=== PATIENT | female | born 1945 | race Caucasian/White ===

== ENCOUNTER 2016-10-12 11:03 | Emergency (ER) | payer MEDICARE ==
--- NOTE | 2016-10-12 12:22 | RAD ---
HISTORY: Facial trauma COMPARISONS: None TECHNIQUE: Multiple contiguous axial CT scans were obtained of the face without intravenous contrast, with coronal and sagittal multiplanar reformations. FINDINGS: BONES: There is no displaced fracture or dislocation. The orbital rim is intact. The zygomatic arch is intact. The pterygoid plates are intact. Degenerative changes are noted of the spine. 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 ORBITS: The globes are round. The optic nerves are symmetric. The extraocular musculature is normal. There is no post septal or intraconal inflammatory change. There is no retrobulbar hematoma. PARANASAL SINUSES: There is mucosal thickening seen with bilateral air cell with osteitis of the surrounding bone and a small osteoma. There is a mucous retention cyst versus polypoid mucosal thickening of the left maxillary sinus BRAIN AND SOFT TISSUE: Unremarkable. OTHER: None. IMPRESSION: NO FACIAL FRACTURE. FINDINGS SUGGESTIVE OF CHRONIC SINUSITIS
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
[2016-10-12] MEDS ORDERED: Ibuprofen TAB* 600 MG PO ONE (13:31)
--- NOTE | 2016-10-12 14:09 | RAD ---
INDICATION: Trauma, right hip pain. COMPARISON: There are no prior studies available for comparison. TECHNIQUE: An AP view of the pelvis and frontal and lateral views of both hips were obtained. FINDINGS: The bones are normal alignment. There is mild deformity of the femoral neck at the femoral head neck junction on the left side. No discrete fracture line is seen. There is mild bilateral osteoarthritic change in the hips. Note is made of osteitis pubis. IMPRESSION: MILD DEFORMITY OF THE LEFT FEMORAL NECK LIKELY CHRONIC ALTHOUGH A FRACTURE CANNOT BE EXCLUDED. IF THE PATIENT HAS SYMPTOMS ON THE LEFT SIDE RECOMMEND CT IMAGING FOR FURTHER EVALUATION.
--- NOTE | 2016-10-12 14:30 | RAD ---
INDICATION: Right rib injury COMPARISON: None TECHNIQUE: Multiple views of the ribs were obtained. FINDINGS: Bones: There are findings suspicious for right-sided seventh and eighth rib fractures with mild displacement evaluation is limited due to osteopenia and technical factors. LUNGS: The lungs are clear. There is no pneumothorax. Pleural spaces: There is no evidence of hemothorax. Other: None IMPRESSION: SUSPECT RIGHT SEVENTH AND EIGHTH RIB FRACTURES. NO PNEUMOTHORAX.
== END 2016-10-12 15:23 | disposition home or self-care (01) ==
LOC: ED 11:03
DX: S20.219A Contusion of unspecified front wall of thorax, initial encounter (principal); T14.8 Other injury of unspecified body region; S00.81XA Abrasion of other part of head, initial encounter; W19.XXXA Unspecified fall, initial encounter; Y93.9 Activity, unspecified; Y92.9 Unspecified place or not applicable
CPT/HCPCS: 70486; 73523; 99283; A9270-GY

== ENCOUNTER 2018-04-21 18:39 | Inpatient (IN) | payer MEDICARE ==
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
[2018-04-21] MEDS ORDERED: Ibuprofen TAB* 600 MG PO ONE (20:58)
[2018-04-21] MEDS ORDERED: Ibuprofen TAB* 600 MG ONE (21:00)
[2018-04-21 23:11] LABS: ABS Basophils 0 10^3/ul (0-0.2); ABS Eosinophils 0.1 10^3/ul (0-0.6); ABS Lymphocytes 1.1 10^3/ul (1.0-4.8); ABS Monocytes 0.6 10^3/ul (0-0.8); ABS Neutrophils 7.1 10^3/ul (1.5-7.7); ABS Nucleated RBC 0 10^3/ul; Eosinophil % 1.1 %; Hematocrit 37 % (35-47); Hemoglobin 12.3 g/dl (12.0-16.0); Lymphocyte % 11.8 %; Mean Corpuscular HGB Conc 34 g/dl (31-36); Mean Corpuscular Hemoglobin 31 pg (27-31); Mean Corpuscular Volume 91 fL (80-97); Mean Platelet Volume 7.9 fL (7.4-10.4); Nucleated Red Blood Cells % 0; Platelet Count 208 10^3/ul (150-450); Red Blood Count 4.04 10^6/ul (4.00-5.40); Red Cell Distribution Width 13 % (10.5-15); White Blood Count 8.9 10^3/ul (3.5-10.8)
[2018-04-21 23:29] LABS: Albumin 3.9 g/dL (3.2-5.2); Albumin/Globulin Ratio 1.6 (1-3); BUN/Creatinine Ratio 27.9 (8-20); Calcium 9.3 mg/dL (8.6-10.3); EGFR Non-African American 95.9 (>60); Globulin 2.4 g/dL (2-4); Potassium 3.9 mmol/L (3.5-5.0); Total Bilirubin 0.3 mg/dL (0.2-1.0); Total Protein 6.3 g/dL (6.4-8.9)
[2018-04-21 23:59] LABS: TSH (Thyroid Stimulating Horm) 3.23 mcIU/mL (0.34-5.60)
[2018-04-22 00:32] LABS: Urine Appearance Clear; Urine Bilirubin Negative (Negative); Urine Blood Negative (Negative); Urine Color Yellow; Urine Glucose Negative (Negative); Urine Ketones Negative (Negative); Urine Nitrite Negative (Negative); Urine Protein Negative (Negative); Urine Specific Gravity 1.012 (1.010-1.030); Urine Urobilinogen Negative (Negative)
[2018-04-22] MEDS ORDERED: Acetaminophen TAB* 325 MG PO PRN (01:41)
[2018-04-22] MEDS ORDERED: NS 0.9% 1000 ML** 1,000 ML IV SCH (01:45)
[2018-04-22] MEDS ORDERED: LORazepam TAB(*) 0.5 MG PO PRN (01:46)
[2018-04-22] MEDS: Heparin VIAL(*) 5000 UNITS/ML VIAL (FIVE THOUSAND) SUBCUT SCH ×3 (07:15→21:41)
[2018-04-22] MEDS: Sertraline* 100 MG TAB PO SCH (09:11)
[2018-04-22] MEDS: BuPROPion XL* 150 MG TAB.XL PO SCH (09:11)
--- NOTE | 2018-04-22 09:28 | HP ---
HISTORY AND PHYSICAL: DATE OF ADMISSION: 03/2618 CHIEF COMPLAINT: Left hip fracture, status post mechanical fall. PRIMARY CARE PHYSICIAN: Jake Bal MD. VEGETABLE HANDLER: Cecilio Gallego, who is her friend and neighbor. CODE STATUS: DNR. SOURCE OF INFORMATION: HPI is obtained from patient and review of medical chart. Patient is an excellent historian. HISTORY OF PRESENT ILLNESS: This is a 73-year-old female with past medical history of depression and anxiety who presented after she slipped and fell while picking up her dog on the ice. The patient was picking up her dog from dog daycare and putting him in the car. She slipped and fell directly on her left hip. She was able to drive home, but when she got home she noticed that her left leg was really hurting, so she called the ambulance. She usually walks unassisted. She lives at [facility] and is wholly independent at baseline. She was in her usual state of health prior to this event. In the emergency room, her vital signs were stable. Her labs are normal. Her EKG shows normal sinus rhythm with left ventricular hypertrophy. Left hip radiograph showed no acute fracture, although a pelvis CT shows a mild comminuted fracture. Ortho was consulted who requested to admit patient for MRI and further evaluation and treatment and who requested that hospitalist interviews patient overnight covering for ortho service. PAST MEDICAL HISTORY: Mild depression and anxiety. PAST SURGICAL HISTORY: History of tonsillectomy. MEDICATIONS: 1. Bupropion 300 mg p.o. daily. 2. Sertraline 100 mg p.o. daily. ALLERGIES: She is allergic to peppers. FAMILY HISTORY: Her mother of Parkinson complications. Her father of coronary artery disease and diabetes. 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 She is a nonsmoker and social drinker. Never illicits. Recently relocated to the [facility] from the [facility] where she lived prior to this. REVIEW OF SYSTEMS: Constitutional: Negative for fevers, chills, or malaise. HEENT: Negative for vision, headaches, dysphagia. Cardiovascular: Negative for chest pain, palpitations, orthopnea. Respiratory: Negative for shortness of breath, cough, or pleuritic chest pain. GI: Negative for nausea, vomiting, diarrhea, or abdominal pain. : Negative for dysuria or hematuria. Musculoskeletal: Positive for left hip pain; otherwise, no myalgias, arthralgias, or weakness. Skin: Negative for rashes or lesions, although does endorse left- sided hip hematoma. Neurologic: Denies focal weakness or numbness. Psychiatric: Denies confusion, depression, or anxiety. PHYSICAL EXAMINATION GENERAL: This is a very pleasant woman in no acute distress, lying in bed. VITAL SIGNS: Patient's vital signs are blood pressure 124/70, pulse of sinus 60 , respiratory rate 12, satting 98% on room air, temp is 98.9. HEENT: She is normocephalic and atraumatic. Pupils are equal and reactive. Sclerae are anicteric. Oropharynx is clear. Dentition is good. NECK: Supple with no supraclavicular or cervical lymphadenopathy. RESPIRATORY: Her lungs are clear to auscultation bilaterally. CARDIAC: She has regular rate and rhythm with no murmurs, rubs, or gallops. ABDOMEN: Her belly is soft, nontender, and nondistended with normoactive bowel sounds in all 4 quadrants. MUSCULOSKELETAL: She can move all 4 extremities, although has reduced range of motion in the left hip secondary to pain. She has 2+ pulses bilaterally. She has no decreased sensation. NEUROLOGIC: Cranial nerves II through XII are intact. Patient is A and O x3. No focal sensation deficits. DIAGNOSTIC STUDIES/LAB DATA: Data: CBC with white blood count of 8.9, hematocrit 37, hemoglobin 12.3, platelets 208. BMP, sodium of 138, potassium 3.9, chloride 109, carbon dioxide 26, BUN 17, creatinine 0.61, and glucose 120. LFTs, AST 18, ALT 21, alkaline phosphatase 80. UA was done, which is totally normal. Imaging: Hip-pelvis radiograph was done, which showed no gross fracture. Pelvis CT was done, which showed mildly comminuted fracture of greater trochanter of the left femur with no dislocation. Asymmetrical lucency in the left sacral ala may represent a vascular groove; however, nondisplaced insufficiency fracture cannot be completely excluded. There is mild soft tissue swelling surrounding the fracture. EKG was done, which showed normal sinus rhythm with left ventricular hypertrophy. EKG and images were reviewed by myself. ASSESSMENT AND PLAN: This is a 73-year-old female with past medical history of mild depression and anxiety who presented after a mechanical fall and found to have left hip fracture. 1. Left hip fracture. We will admit to ortho service with medicine consulting , nonweightbearing. I have ordered a left hip MRI at the instructions of on- call orthopedic surgeon. Ortho consult tomorrow. 2. Depression and anxiety. Continue home sertraline and bupropion. Patient has asked for p.r.n. Ativan for sleep, which I have ordered. 3. FEN. We will keep the patient n.p.o. in the event her injury needs surgical repair. 4. DVT prophylaxis. We will place patient on subcu heparin, though we will defer to orthopedic service if other anticoagulation is warranted. 5. Disposition. Patient is stable to the floor. Code status is DNR. Ambulation status, she is on bedrest. Plan of care was discussed with the patient, who is in agreement with plan and has no further questions. TIME SPENT: Forty minutes were spent in the execution of this admission and H and P, with over half of that spent directly at the bedside providing direct patient care. [id number]/[facility] #: [id number] GHIS[place]
[2018-04-22] MEDS: HYDROcodone/ACETAMIN 5-325 MG* 1 TAB PO PRN ×3 (10:04→21:41)
[2018-04-22 11:53] LABS: Hepatitis C Antibody Nonreactive (Nonreactive)
--- NOTE | 2018-04-22 11:56 | CONS ---
DATE OF CONSULT: 04/22/2018. DATE OF ADMISSION: 04/22/2018. CHIEF COMPLAINT: Left greater trochanteric fracture, status post mechanical fall. PRIMARY CARE PHYSICIAN: Dr. Jake Bal. HISTORY OF PRESENT ILLNESS: The patient is a 73-year-old female with a past medical history significant for depression and anxiety who presented to the emergency room after slipping on ice while picking up her dog. Fall consisted of a slip on the ice and falling directly onto the left hip without other reported injuries. She was able to get up and drive home, though due to continued severe sharp pain of the left hip, she called an ambulance. Fall was not associated with chest pain, irregular beats, shortness of breath, dizziness , nausea, change in vision. She did not hit her head or lose consciousness with the fall. The patient is a community ambulator who walks without assistance. At baseline, she lives in the independent section of [facility]. Today her left hip is painful with movement, but she is quite comfortable while lying in bed. She has no associated numbness or tingling. She has not attempted to ambulate since she has been hospitalized. based on xray and CT data, she was diagnosed with a left greater trochanteric fracture with possible extension into the intertrochanteric region for which an MRI of the hip has been ordered. PAST MEDICAL HISTORY: Significant for mild depression and anxiety. PAST SURGICAL HISTORY: History of tonsillectomy. MEDICATIONS: 1. Bupropion 30 mg p.o. daily. 2. Sertraline 100 mg p.o. daily. ALLERGIES: PEPPERS. FAMILY HISTORY: Mother from Parkinson's. Father of coronary artery disease and diabetes. SOCIAL HISTORY: The patient lives independently at [facility]. She is a community ambulator. She does not smoke. She drinks socially. REVIEW OF SYSTEMS: General: No fevers, chills, or recent illness. HEENT: Negative for headache, head trauma, acute change in vision. Cardio: No irregular beats. No chest pain. Respiratory: No shortness of breath. No cough. Abdomen: No abdominal pain, nausea, vomiting or diarrhea. : No dysuria. Musculoskeletal: Positive for left hip pain. No pain of her right lower extremity or of either upper extremity. Neuro: Sensation intact throughout all extremities without any numbness or paresthesia. Hematology: No reported history of blood clot. Skin: No reported rash or lesions. PHYSICAL EXAM: General: The patient is well-appearing. She is alert and oriented to person, place, and time. Vital Signs: Temperature 97.9, pulse rate 71, respiratory rate 18, oxygen saturation 95, blood pressure 128/55. HEENT: Normocephalic, atraumatic. Extraocular movements intact. Cardio: S1, S2, regular rate and rhythm. Respiratory: Clear to auscultation bilaterally without wheeze, rales, or rhonchi. Abdomen: Bowel sounds normoactive. Nontender to palpation. No guarding, no rigidity. Musculoskeletal: Bilateral upper extremities and right lower extremity skin envelop is intact. No obvious bony deformity. Nontender to palpation. Upper extremities with active flexion and extension of digits. Wrist, elbow, and shoulders with active forward flexion and abduction all without pain. Bilateral lower extremities: Skin envelop intact. No obvious bony deformity. Right lower extremity is nontender to palpation. Left lower extremity is tender to palpation over the left greater trochanter. Thighs are soft. She has active nonpainful flexion and/or extension of digits, ankle, knee and hip bilaterally. Negative for pain with log roll bilaterally. Neuro: Sensation intact to light touch throughout bilateral upper and lower extremities. Vascular: DP pulse 2+ bilaterally. Psych: Appropriate affect. Skin: No rash or lesions. DIAGNOSTIC STUDIES/LAB DATA: 1. Hip and pelvis x-ray: Impression per radiology: Nondisplaced left greater trochanteric fracture. 2. Pelvis CT scan: Mildly comminuted fracture of the greater trochanter of the left femur without dislocation of the hip. ASSESSMENT: Left greater trochanter femur fracture. PLAN: MRI of the left hip to rule out extension of the greater trochanteric fracture into the intratrochanteric region. If MRI reveals intertrochanteric fracture, she will require an ORIF of this hip with IM nail. If fracture is limited to the greater trochanter alone, she will be weightbearing as tolerated with the limitation of no abduction and this would be a nonoperative treatment plan. KAYDEN DOMINGO [id number]/[facility] #: [id number] [facility] HOSPITALKathleen
--- NOTE | 2018-04-22 20:38 | PN ---
Subjective Date of Service: 04/22/18 Interval History: Pt is feeling ok. She states her pain is currently 1-2/10, but that she has required pain medication earlier in the day. She states that she has been sleeping poorly, due to interrupted sleep, anxiety, restlessness, and occasional pain. She is anxious about the path of her currently injury, such as how long she will be unable to walk, etc. Currently, she states that she is still able to move the L extremity, but that certain movements cause her pain. She is states she feels restless, as she is an active person, and laying in bed is difficult for her. She denies CP, cough, fever, SOB, abd pain. She states she has not have a BM in a few days, but that she has also been unable to eat as well as she usually does. She denies calf pain. She reports pain in the L hip. Objective Active Medications: Acetaminophen (Tylenol Tab*) 650 mg PO Q6H PRN PRN Reason: FEVER/PAIN Hydrocodone Bitart/Acetaminophen ([place] 5-325 Tab*) 1 tab PO Q6H PRN PRN Reason: PAIN Last Admin: 04/22/18 15:37 Dose: 1 tab Bupropion HCl (Wellbutrin Xl *) 150 mg PO DAILY [facility] Last Admin: 04/22/18 09:11 Dose: 150 mg Heparin Sodium (Porcine) (Heparin Vial(*)) 5,000 units SUBCUT Q8HR [facility] Stop: 04/22/18 23:59 Last Admin: 04/22/18 13:55 Dose: 5,000 units Lorazepam (Ativan Tab(*)) 0.5 mg PO Q6H PRN PRN Reason: INSOMNIA Sertraline HCl (Zoloft*) 100 mg PO DAILY [facility] Last Admin: 04/22/18 09:11 Dose: 100 mg Vital Signs: Temp Pulse Resp BP Pulse Ox 98.2 F 75 16 120/59 98 04/22/18 11:40 04/22/18 11:40 04/22/18 15:37 04/22/18 11:40 04/22/18 11:40 Oxygen Devices in Use Now: None Appearance: Pt is sitting up in bed. She is restless and fidgeting, but appears well and in no acute distress. Eyes: No Scleral Icterus, PERRLA Ears/Nose/Mouth/Throat: NL Teeth, Lips, Gums, Mucous Membranes Moist Neck: NL Appearance and Movements; NL JVP, Trachea Midline Respiratory: Symmetrical Chest Expansion and Respiratory Effort, Clear to Auscultation Cardiovascular: NL Sounds; No Murmurs; No JVD, RRR, No Edema Abdominal: NL Sounds; No Tenderness; No Distention, No Hepatosplenomegaly Extremities: No Edema, No Clubbing, Cyanosis, - - Pt able to move all extremities. L leg nontender to palpation. Radial and pedal pulses palpable. Skin: No Rash or Ulcers Neurological: Alert and Oriented x 3 Result Diagrams: 04/21/18 23:01 04/21/18 23:01 Microbiology and Other Data: Microbiology 04/22/18 04:20 Nasal Screen MRSA (PCR) - Final Nasal Mrsa Detected Assess/Plan/Problems-Billing Assessment: Pt is a 73yof with PMHx of depression, anxiety, who presents to ER with L hip fracture after fall; likely ORIF 04/23. - Patient Problems (1) Closed fracture of greater trochanter of left femur Comment: -Likely ORIF in morning; management per ortho team (2) Depression with anxiety Comment: -Stable; pt does report increased anxiety -Continue Bupropion, Sertraline, Lorazepam (3) DVT prophylaxis Comment: -Heparin
[2018-04-23] MEDS: HYDROcodone/ACETAMIN 5-325 MG* 1 TAB PO PRN ×3 (04:00→18:18)
[2018-04-23] MEDS: Sertraline* 100 MG TAB PO SCH (08:43)
[2018-04-23 09:17] LABS: ABS Basophils 0 10^3/ul (0-0.2); ABS Eosinophils 0.1 10^3/ul (0-0.6); ABS Lymphocytes 0.9 10^3/ul (1.0-4.8); ABS Monocytes 0.5 10^3/ul (0-0.8); ABS Nucleated RBC 0 10^3/ul; Eosinophil % 2.1 %; Hematocrit 36 % (35-47); Hemoglobin 12.2 g/dl (12.0-16.0); Lymphocyte % 16.3 %; Mean Corpuscular HGB Conc 34 g/dl (31-36); Mean Corpuscular Hemoglobin 31 pg (27-31); Mean Corpuscular Volume 91 fL (80-97); Mean Platelet Volume 7.4 fL (7.4-10.4); Nucleated Red Blood Cells % 0; Platelet Count 178 10^3/ul (150-450); Red Blood Count 3.96 10^6/ul (4.00-5.40); Red Cell Distribution Width 13 % (10.5-15); White Blood Count 5.5 10^3/ul (3.5-10.8)
[2018-04-23 09:38] LABS: BUN/Creatinine Ratio 21.2 (8-20); Calcium 8.8 mg/dL (8.6-10.3); EGFR African American 139.5 (>60); EGFR Non-African American 115.3 (>60); Potassium 3.8 mmol/L (3.5-5.0)
[2018-04-23] MEDS: BuPROPion XL* 150 MG TAB.XL PO SCH (09:57)
--- NOTE | 2018-04-23 11:34 | PN ---
Subjective Date of Service: 04/23/18 Interval History: Patient seen and examined. No acute overnight events. Discussion with orthopedics today that MRI revealed left intertroch fx that will require fixation. Patient amenable to procedure. Shes denies SOB, no chest pain, no fevers or chills. She has mild "aches" in her left shoulder which she attributes to not taking her scheduled SSRI. Objective Active Medications: Acetaminophen (Tylenol Tab*) 650 mg PO Q6H PRN PRN Reason: FEVER/PAIN Hydrocodone Bitart/Acetaminophen ([place] 5-325 Tab*) 1 tab PO Q6H PRN PRN Reason: PAIN Last Admin: 04/23/18 08:43 Dose: 1 tab Bupropion HCl (Wellbutrin Xl *) 150 mg PO DAILY [facility] Last Admin: 04/23/18 09:57 Dose: 150 mg Lorazepam (Ativan Tab(*)) 0.5 mg PO Q6H PRN PRN Reason: INSOMNIA Sertraline HCl (Zoloft*) 100 mg PO DAILY [facility] Last Admin: 04/23/18 08:43 Dose: 100 mg Vital Signs - 8 hr 04/23/18 04/23/18 04/23/18 04:00 04:06 06:40 Temperature 98.5 F Pulse Rate 68 Respiratory 18 18 16 Rate Blood Pressure 135/67 (mmHg) O2 Sat by Pulse 97 Oximetry 04/23/18 04/23/18 04/23/18 08:00 08:43 10:54 Temperature 98.6 F Pulse Rate 70 Respiratory 18 18 18 Rate Blood Pressure 150/60 (mmHg) O2 Sat by Pulse 94 Oximetry Oxygen Devices in Use Now: None Appearance: alert, NAD Eyes: No Scleral Icterus, PERRLA Ears/Nose/Mouth/Throat: NL Teeth, Lips, Gums, Mucous Membranes Moist Neck: NL Appearance and Movements; NL JVP, Trachea Midline Respiratory: Symmetrical Chest Expansion and Respiratory Effort, Clear to Auscultation Cardiovascular: NL Sounds; No Murmurs; No JVD, RRR, No Edema Abdominal: NL Sounds; No Tenderness; No Distention Extremities: No Edema, No Clubbing, Cyanosis, - - tenderness over left hip Skin: No Rash or Ulcers Neurological: Alert and Oriented x 3, NL Sensation Nutrition: - - NPO Result Diagrams: 04/23/18 09:06 04/23/18 09:06 Microbiology and Other Data: Microbiology 04/22/18 04:20 Nasal Screen MRSA (PCR) - Final Nasal Mrsa Detected Assess/Plan/Problems-Billing Assessment: This is a 73yof with PMHx of depression, anxiety, who presents to ER with L hip fracture after fall, plan for ORIF today. - Patient Problems (1) Closed fracture of greater trochanter of left femur Code(s): S72.112A - DISP FX OF GREATER TROCHANTER OF LEFT FEMUR, INIT SNOMED Code(s): 343570563 Comment: - Orthopedics following - MRI with extension into the intertrochanteric region - Plan for gamma nail today at 1330 - Labs WNL, EKG with no acute changes; RCRI CV Risk assessment is Class I Risk or 3.9% risk of major cardiac event, patient is currently medically optimized to procede with ORIF today (2) Depression with anxiety Code(s): F41.8 - OTHER SPECIFIED ANXIETY DISORDERS SNOMED Code(s): 63593383 Comment: - Continue Bupropion, Sertraline, Lorazepam post-operatively (3) DVT prophylaxis Code(s): TKV0083 - SNOMED Code(s): 515759899 Comment: - Restart lovenox tomorrow for 30 days Status and Disposition: Inpatient, dispo as per orthopedics.
--- NOTE | 2018-04-23 12:22 | PN ---
Progress Note - Progress Note Date of Service: 04/23/18 SOAP: Subjective: []Pt seen at bedside. She feels well with minimal left hip pain. Denies CP, SOB , dizziness, nausea. Optimized per medicine. Objective: []General: Well appearing, NAD LLE: Skin envelope intact, mildly tender over greater troch, thigh is soft, DF/ PF intact, DP2+, sensation intact to light touch distally Calves supple and nontender without erythema, edema or palpable cords Assessment: []Left IT fracture Plan: []NWB LLE NPO, hold chemical DVT prophylaxis OR today today ORIF left IT fracture, Dr Thomas. Vital Signs Temp 97.4 F 04/23/18 11:43 Pulse 71 04/23/18 11:43 Resp 15 04/23/18 11:43 BP 145/60 04/23/18 11:43 Pulse Ox 93 04/23/18 11:43 Intake & Output 04/22/18 04/23/18 04/23/18 18:59 06:59 18:59 Intake Total 981 360 Output Total 1050 550 300 Balance -69 -190 -300 Weight 146 lb Intake: IV Fluids 981 NS (0.9%) 981 Oral 360 Output: Urine 1050 550 300 Laboratory Last Values WBC 5.5 10^3/ul (3.5-10.8) 04/23/18 09:06 RBC 3.96 10^6/ul (4.00-5.40) L 04/23/18 09:06 Hgb 12.2 g/dl (12.0-16.0) 04/23/18 09:06 Hct 36 % (35-47) 04/23/18 09:06 MCV 91 fL (80-97) 04/23/18 09:06 MCH 31 pg (27-31) 04/23/18 09:06 MCHC 34 g/dl (31-36) 04/23/18 09:06 RDW 13 % (10.5-15) 04/23/18 09:06 Plt Count 178 10^3/ul (150-450) 04/23/18 09:06 MPV 7.4 fL (7.4-10.4) 04/23/18 09:06 Neut % (Auto) 72.1 % 04/23/18 09:06 Lymph % (Auto) 16.3 % 04/23/18 09:06 [place] % (Auto) 8.8 % 04/23/18 09:06 Eos % (Auto) 2.1 % 04/23/18 09:06 Baso % (Auto) 0.7 % 04/23/18 09:06 Absolute Neuts (auto) 4.0 10^3/ul (1.5-7.7) 04/23/18 09:06 Absolute Lymphs (auto) 0.9 10^3/ul (1.0-4.8) L 04/23/18 09:06 Absolute Monos (auto) 0.5 10^3/ul (0-0.8) 04/23/18 09:06 Absolute Eos (auto) 0.1 10^3/ul (0-0.6) 04/23/18 09:06 Absolute Basos (auto) 0 10^3/ul (0-0.2) 04/23/18 09:06 Absolute Nucleated RBC 0 10^3/ul 04/23/18 09:06 Nucleated RBC % 0 04/23/18 09:06 INR (Anticoag Therapy) 1.00 (0.77-1.02) 04/23/18 09:06 Sodium 141 mmol/L (135-145) 04/23/18 09:06 Potassium 3.8 mmol/L (3.5-5.0) 04/23/18 09:06 Chloride 107 mmol/L (101-111) 04/23/18 09:06 Carbon Dioxide 29 mmol/L (22-32) 04/23/18 09:06 Anion Gap 5 mmol/L (2-11) 04/23/18 09:06 BUN 11 mg/dL (6-24) 04/23/18 09:06 Creatinine 0.52 mg/dL (0.51-0.95) 04/23/18 09:06 Est GFR ( Amer) 139.5 (>60) 04/23/18 09:06 Est GFR (Non-Af Amer) 115.3 (>60) 04/23/18 09:06 BUN/Creatinine Ratio 21.2 (8-20) H 04/23/18 09:06 Glucose 103 mg/dL (70-100) H 04/23/18 09:06 Calcium 8.8 mg/dL (8.6-10.3) 04/23/18 09:06 Total Bilirubin 0.30 mg/dL (0.2-1.0) 04/21/18 23:01 AST 18 U/L (13-39) 04/21/18 23:01 ALT 21 U/L (7-52) 04/21/18 23:01 Alkaline Phosphatase 80 U/L (34-104) 04/21/18 23:01 Total Protein 6.3 g/dL (6.4-8.9) L 04/21/18 23:01 Albumin 3.9 g/dL (3.2-5.2) 04/21/18 23:01 Globulin 2.4 g/dL (2-4) 04/21/18 23:01 Albumin/Globulin Ratio 1.6 (1-3) 04/21/18 23:01 TSH 3.23 mcIU/mL (0.34-5.60) 04/21/18 23:01 Urine Color Yellow 04/22/18 00:15 Urine Appearance Clear 04/22/18 00:15 Urine pH 5.0 (5-9) 04/22/18 00:15 Ur Specific [place] 1.012 (1.010-1.030) 04/22/18 00:15 Urine Protein Negative (Negative) 04/22/18 00:15 Urine Ketones Negative (Negative) 04/22/18 00:15 Urine Blood Negative (Negative) 04/22/18 00:15 Urine Nitrate Negative (Negative) 04/22/18 00:15 Urine Bilirubin Negative (Negative) 04/22/18 00:15 Urine Urobilinogen Negative (Negative) 04/22/18 00:15 Ur Leukocyte Esterase Negative (Negative) 04/22/18 00:15 Urine Glucose Negative (Negative) 04/22/18 00:15 Hepatitis C Antibody Nonreactive (Nonreactive) 04/21/18 23:00 Hepatitis C Ab Index < 0.0 Index 04/21/18 23:00 Blood Type O Positive 04/23/18 09:06 Antibody Screen Negative 04/23/18 09:06
[2018-04-23] MEDS ORDERED: fentaNYL* 50 MCG/ML 5 ML VIAL (250 MCG VIAL) ONE (13:51)
[2018-04-23] MEDS ORDERED: Lidocaine 2% PF * 5 ML VIAL ONE ×2 (13:53→16:45)
[2018-04-23] MEDS ORDERED: Propofol* 10 MG/ML 20 ML BTL ONE (13:53)
[2018-04-23] MEDS ORDERED: ceFAZolin 2 GM PREMIX in ORs 2 GM/50 ML BAG IVPB ONE (15:10)
--- NOTE | 2018-04-23 15:18 | PN ---
Progress Note - Progress Note Date of Service: 04/23/18 Note: I have seen and examined Isabela and agree with the consultation note dictated by KAYDEN Edwards. She has a nondisplaced left hip intertrochanteric hip fracture confirmed on MRI. We will plan for surgical stabilization today with a left hip short gamma nail.
[2018-04-23] MEDS ORDERED: Bupivacaine 0.5% W/EPI SDV* 30 ML VIAL ONE (15:21)
[2018-04-23] MEDS ORDERED: Rocuronium* 10 MG/ML VIAL ONE ×2 (15:25→16:25)
[2018-04-23] MEDS ORDERED: Phenylephrine IV* 40 MCG/ML 10 ML SYRINGE ONE (16:16)
[2018-04-23] MEDS ORDERED: Cisatracurium* 2 MG/ML MDV 5 ML ONE (16:23)
[2018-04-23] MEDS ORDERED: Dexamethasone IV* 4 MG/ML 1 ML (4 MG) ONE (16:27)
[2018-04-23] MEDS ORDERED: Ibuprofen TAB* 600 MG PO PRN (16:37)
[2018-04-23] MEDS ORDERED: DiMENhydriNATE IV* 50 MG/ML VIAL IV PUSH PRN (16:37)
[2018-04-23] MEDS ORDERED: HYDROmorphone INJ1* 1 MG/ML SYRINGE IV PRN (16:37)
[2018-04-23] MEDS ORDERED: Naloxone* 0.4 MG/ML 1 ML VIAL IV PRN (16:37)
[2018-04-23] MEDS ORDERED: Etomidate* 2 MG/ML 10 ML VIAL ONE (16:45)
[2018-04-23] MEDS ORDERED: Ondansetron INJ* 2 MG/ML VIAL ONE (16:50)
[2018-04-23] MEDS ORDERED: Sugammadex * 200 MG/2 ML VIAL IV PUSH ONE (16:54)
[2018-04-23] MEDS ORDERED: hydrALAZINE IV* 20 MG/ML VIAL ONE (17:12)
[2018-04-23] MEDS ORDERED: fentaNYL* 50 MCG/ML 2 ML VIAL (100 MCG VIAL) ONE (17:38)
[2018-04-23] MEDS: fentaNYL* 50 MCG/ML 2 ML VIAL (100 MCG VIAL) IV PRN ×3 (17:39→18:39)
[2018-04-23] MEDS ORDERED: Ibuprofen TAB* 600 MG ONE (18:17)
[2018-04-23] MEDS ORDERED: HYDROcodone/ACETAMIN 5-325 MG* 1 TAB ONE (18:17)
[2018-04-23] MEDS ORDERED: Morphine VIAL* 4 MG/ML VIAL (1 ml vial) IV PRN (20:19)
[2018-04-23] MEDS ORDERED: NS 0.9% 1000 ML** 1,000 ML IV SCH (20:30)
--- NOTE | 2018-04-23 20:34 | OP ---
DATE OF OPERATION: 04/23/18 - ROOM #33 DATE OF : 43 SURGEON: Kris Thomas MD. LINING BRUSHER: None. ANESTHESIOLOGIST: Dr. Vazquez. ANESTHESIA: General. PRE-OP DIAGNOSIS: Left hip intertrochanteric fracture. POST-OP DIAGNOSIS: Left hip intertrochanteric fracture. OPERATIVE PROCEDURE: Intramedullary fixation of left hip intertrochanteric fracture with short Synthes TFN nail. INDICATIONS: Isabela had a left hip intertrochanteric fracture that was minimally displaced. I had gotten an MRI to confirm that there was a fracture. We talked about risks and benefits. She wanted to stabilize the fracture to allow for early mobilization. FINDINGS: See above and below. ESTIMATED BLOOD LOSS: 50 mL. COMPLICATIONS: None. DESCRIPTION OF PROCEDURE: Isabela was seen in the preoperative holding area. The correct site, side, and procedure were identified. We came back to the operating room where anesthesia was induced and she was positioned on the fracture table with the right leg in the well-leg murray. The left leg was stabilized with a traction boot. No closed reduction was required as the fracture was minimally displaced. The leg was washed and then prepped and draped with a shower curtain. A time- out was performed. I began by marking out my bony landmarks and confirming my location and alignment of the fracture with the C-arm fluoroscopy. I then made a 5 to 7 cm incision proximal to the greater trochanter. The guidewire was placed on the tip of the greater trochanter and confirmed on AP and lateral imaging. This was then advanced down to the lesser troch. I then used my opening drill to drill down past the lesser troch. I then placed a 12 x 170 mm x 125-degree Synthes short TFNA nail. Once I confirmed the appropriate depth, I went ahead and placed my triple-sleeve guide and then placed the guidewire up to the center- center position. She had a large foveal recess, so I took it just below that cortical recess. I then measured a 95-mm screw and then drilled and then placed my 95-mm screw. I did apply some compression across the fracture. I then firmly tightened the set screw. Lastly, I placed my distal Crosslock in the static position in standard fashion using the guide. This went in without any complications. It was a 36-mm screw. The final fluoroscopic imaging confirmed maintenance of the alignment and appropriate placement of the Synthes TFNA device. The wounds were irrigated out. The tensor fascia shasta was closed with 0 Vicryl suture. The subcutaneous tissue was reapproximated with 2-0 Vicryl suture. Skin was closed with ashanti. Wounds were dressed with Xeroform, 4x4s, ABD, and Tegaderms. Marcaine 0.5% with epinephrine had been infiltrated all around the operative wounds. She was then woken up and taken to the recovery room in stable condition. [id number]/[facility] #: [id number] GHISLAINE
[2018-04-23] MEDS: ceFAZolin 1 GM* X 3 DOSES POST-OP Q8H (AddVan) IVPB SCH ×2 (23:49)
[2018-04-24] MEDS: traMADol TAB* 50 MG PO PRN ×2 (02:02→15:59)
[2018-04-24] MEDS: HYDROcodone/ACETAMIN 5-325 MG* 1 TAB PO PRN ×4 (06:09→19:12)
[2018-04-24 06:35] LABS: Hematocrit 33 % (35-47); Hemoglobin 10.9 g/dl (12.0-16.0); Mean Platelet Volume 7.6 fL (7.4-10.4); Platelet Count 163 10^3/ul (150-450)
[2018-04-24 06:51] LABS: BUN/Creatinine Ratio 17.4 (8-20); Calcium 8.6 mg/dL (8.6-10.3); EGFR African American 160.7 (>60); EGFR Non-African American 132.8 (>60); Potassium 3.6 mmol/L (3.5-5.0)
[2018-04-24] MEDS: BuPROPion XL* 150 MG TAB.XL PO SCH (08:15)
[2018-04-24] MEDS: ceFAZolin 1 GM* X 3 DOSES POST-OP Q8H (AddVan) IVPB SCH ×4 (08:15→16:05)
[2018-04-24] MEDS: Sertraline* 100 MG TAB PO SCH (08:15)
[2018-04-24] MEDS: Enoxaparin(*) 40 MG/0.4 ML SYR SUBCUT SCH (11:08)
--- NOTE | 2018-04-24 12:52 | PN ---
Progress Note - Progress Note Date of Service: 04/24/18 SOAP: Subjective: []Pt seen at bedside. She feels well without LLE pain, CP, SOB, dizziness, nausea. Objective: []General: Well appearing, NAD LLE: Skin envelope intact, mildly tender over greater troch, thigh is soft, DF/ PF intact, DP2+, sensation intact to light touch distally Calves supple and nontender without erythema, edema or palpable cords Assessment: []Left IT fracture POD 1 s/p gamma nail fixation Plan: []WBAT LLE Lovenox 40 mg sq qd x 4 weeks Daily dressing change starting [facility] Vital Signs Temp 97.9 F 04/24/18 12:20 Pulse 66 04/24/18 12:20 Resp 18 04/24/18 12:20 BP 102/48 04/24/18 12:20 Pulse Ox 97 04/24/18 04:25 Intake & Output 04/23/18 04/24/18 04/24/18 18:59 06:59 18:59 Intake Total 1300 700 909 Output Total 650 1400 Balance 650 -700 909 Intake: IV Fluids 1300 909 LR 1300 NS (0.9%) 909 Oral 700 Output: Urine 300 Steven 350 1400 Laboratory Last Values WBC 5.5 10^3/ul (3.5-10.8) 04/23/18 09:06 RBC 3.96 10^6/ul (4.00-5.40) L 04/23/18 09:06 Hgb 10.9 g/dl (12.0-16.0) L 04/24/18 06:28 Hct 33 % (35-47) L 04/24/18 06:28 MCV 91 fL (80-97) 04/23/18 09:06 MCH 31 pg (27-31) 04/23/18 09:06 MCHC 34 g/dl (31-36) 04/23/18 09:06 RDW 13 % (10.5-15) 04/23/18 09:06 Plt Count 163 10^3/ul (150-450) 04/24/18 06:28 MPV 7.6 fL (7.4-10.4) 04/24/18 06:28 Neut % (Auto) 72.1 % 04/23/18 09:06 Lymph % (Auto) 16.3 % 04/23/18 09:06 [place] % (Auto) 8.8 % 04/23/18 09:06 Eos % (Auto) 2.1 % 04/23/18 09:06 Baso % (Auto) 0.7 % 04/23/18 09:06 Absolute Neuts (auto) 4.0 10^3/ul (1.5-7.7) 04/23/18 09:06 Absolute Lymphs (auto) 0.9 10^3/ul (1.0-4.8) L 04/23/18 09:06 Absolute Monos (auto) 0.5 10^3/ul (0-0.8) 04/23/18 09:06 Absolute Eos (auto) 0.1 10^3/ul (0-0.6) 04/23/18 09:06 Absolute Basos (auto) 0 10^3/ul (0-0.2) 04/23/18 09:06 Absolute Nucleated RBC 0 10^3/ul 04/23/18 09:06 Nucleated RBC % 0 04/23/18 09:06 INR (Anticoag Therapy) 1.00 (0.77-1.02) 04/23/18 09:06 Sodium 139 mmol/L (135-145) 04/24/18 06:28 Potassium 3.6 mmol/L (3.5-5.0) 04/24/18 06:28 Chloride 107 mmol/L (101-111) 04/24/18 06:28 Carbon Dioxide 26 mmol/L (22-32) 04/24/18 06:28 Anion Gap 6 mmol/L (2-11) 04/24/18 06:28 BUN 8 mg/dL (6-24) 04/24/18 06:28 Creatinine 0.46 mg/dL (0.51-0.95) L 04/24/18 06:28 Est GFR ( Amer) 160.7 (>60) 04/24/18 06:28 Est GFR (Non-Af Amer) 132.8 (>60) 04/24/18 06:28 BUN/Creatinine Ratio 17.4 (8-20) 04/24/18 06:28 Glucose 104 mg/dL (70-100) H 04/24/18 06:28 Calcium 8.6 mg/dL (8.6-10.3) 04/24/18 06:28 Total Bilirubin 0.30 mg/dL (0.2-1.0) 04/21/18 23:01 AST 18 U/L (13-39) 04/21/18 23:01 ALT 21 U/L (7-52) 04/21/18 23:01 Alkaline Phosphatase 80 U/L (34-104) 04/21/18 23:01 Total Protein 6.3 g/dL (6.4-8.9) L 04/21/18 23:01 Albumin 3.9 g/dL (3.2-5.2) 04/21/18 23:01 Globulin 2.4 g/dL (2-4) 04/21/18 23:01 Albumin/Globulin Ratio 1.6 (1-3) 04/21/18 23:01 TSH 3.23 mcIU/mL (0.34-5.60) 04/21/18 23:01 Urine Color Yellow 04/22/18 00:15 Urine Appearance Clear 04/22/18 00:15 Urine pH 5.0 (5-9) 04/22/18 00:15 Ur Specific [place] 1.012 (1.010-1.030) 04/22/18 00:15 Urine Protein Negative (Negative) 04/22/18 00:15 Urine Ketones Negative (Negative) 04/22/18 00:15 Urine Blood Negative (Negative) 04/22/18 00:15 Urine Nitrate Negative (Negative) 04/22/18 00:15 Urine Bilirubin Negative (Negative) 04/22/18 00:15 Urine Urobilinogen Negative (Negative) 04/22/18 00:15 Ur Leukocyte Esterase Negative (Negative) 04/22/18 00:15 Urine Glucose Negative (Negative) 04/22/18 00:15 Hepatitis C Antibody Nonreactive (Nonreactive) 04/21/18 23:00 Hepatitis C Ab Index < 0.0 Index 04/21/18 23:00 Blood Type O Positive 04/23/18 09:06 Antibody Screen Negative 04/23/18 09:06
--- NOTE | 2018-04-24 16:39 | PN ---
Subjective Date of Service: 04/24/18 Interval History: Patient seen and examined. Feeling well, no acute overnight events. Surgical pain well controlled. Denies SOB, no chest pain and no fever or chills. Objective Active Medications: Acetaminophen (Tylenol Tab*) 650 mg PO Q6H PRN PRN Reason: FEVER/PAIN Hydrocodone Bitart/Acetaminophen ([place] 5-325 Tab*) 2 tab PO Q4H PRN PRN Reason: PAIN Last Admin: 04/24/18 11:07 Dose: 2 tab Bupropion HCl (Wellbutrin Xl *) 150 mg PO DAILY [facility] Last Admin: 04/24/18 08:15 Dose: 150 mg Enoxaparin Sodium (Lovenox(*)) 40 mg SUBCUT Q24H [facility] Last Admin: 04/24/18 11:08 Dose: 40 mg Sodium Chloride (Ns 0.9% 1000 Ml) 1,000 mls @ 100 mls/hr IV PER RATE [facility] Last Admin: 04/23/18 21:42 Dose: 100 mls/hr Lorazepam (Ativan Tab(*)) 0.5 mg PO Q6H PRN PRN Reason: INSOMNIA Morphine Sulfate (Morphine Vial*) 1 mg IV Q2H PRN PRN Reason: PAIN - SEVERE Last Admin: 04/24/18 04:10 Dose: 1 mg Sertraline HCl (Zoloft*) 100 mg PO DAILY [facility] Last Admin: 04/24/18 08:15 Dose: 100 mg Tramadol HCl (Ultram*) 50 mg PO Q6H PRN PRN Reason: PAIN - MILD Last Admin: 04/24/18 15:59 Dose: 50 mg Vital Signs - 8 hr 04/24/18 04/24/18 04/24/18 08:50 09:07 11:07 Temperature Pulse Rate Respiratory 16 16 16 Rate Blood Pressure (mmHg) O2 Sat by Pulse Oximetry 04/24/18 04/24/18 04/24/18 12:20 13:35 15:40 Temperature 97.9 F 98.6 F Pulse Rate 66 71 Respiratory 18 16 18 Rate Blood Pressure 102/48 104/52 (mmHg) O2 Sat by Pulse 93 Oximetry 04/24/18 15:59 Temperature Pulse Rate Respiratory 16 Rate Blood Pressure (mmHg) O2 Sat by Pulse Oximetry Oxygen Devices in Use Now: None Appearance: alert, NAD Eyes: No Scleral Icterus, PERRLA Ears/Nose/Mouth/Throat: NL Teeth, Lips, Gums, Mucous Membranes Moist Neck: NL Appearance and Movements; NL JVP, Trachea Midline Respiratory: Symmetrical Chest Expansion and Respiratory Effort, Clear to Auscultation Cardiovascular: NL Sounds; No Murmurs; No JVD, RRR Abdominal: NL Sounds; No Tenderness; No Distention, No Hepatosplenomegaly Extremities: No Edema, No Clubbing, Cyanosis, - - dressing CDI Skin: No Rash or Ulcers Neurological: Alert and Oriented x 3, NL Sensation Nutrition: Taking PO's Result Diagrams: 04/24/18 06:28 04/24/18 06:28 Microbiology and Other Data: Microbiology 04/22/18 04:20 Nasal Screen MRSA (PCR) - Final Nasal Mrsa Detected Assess/Plan/Problems-Billing Assessment: This is a 73yof with PMHx of depression, anxiety, who presents to ER with L hip fracture after fall, s/p ORIF. - Patient Problems (1) Closed fracture of greater trochanter of left femur Code(s): S72.112A - DISP FX OF GREATER TROCHANTER OF LEFT FEMUR, INIT SNOMED Code(s): 784420706 Comment: - POD1 gamma nail - POC as per ortho - OOB with PT/OT, pain control and bowel regimen - Plan for STR (2) Depression with anxiety Code(s): F41.8 - OTHER SPECIFIED ANXIETY DISORDERS SNOMED Code(s): 33208382 Comment: - Continue Bupropion, Sertraline, Lorazepam post-operatively (3) DVT prophylaxis Code(s): NPH7056 - SNOMED Code(s): 871610179 Comment: - Restart lovenox tomorrow for 30 days Status and Disposition: Inpatient, dispo as per orthopedics, plan for [facility] if accepted.
[2018-04-25] MEDS: traMADol TAB* 50 MG PO PRN (02:07)
[2018-04-25] MEDS: HYDROcodone/ACETAMIN 5-325 MG* 1 TAB PO PRN (06:02)
[2018-04-25 07:07] LABS: Hematocrit 32 % (35-47); Hemoglobin 11.1 g/dl (12.0-16.0); Mean Platelet Volume 7.7 fL (7.4-10.4); Platelet Count 167 10^3/ul (150-450)
[2018-04-25 07:22] LABS: BUN/Creatinine Ratio 19.2 (8-20); Calcium 8.5 mg/dL (8.6-10.3); EGFR African American 139.5 (>60); EGFR Non-African American 115.3 (>60); Potassium 4.1 mmol/L (3.5-5.0)
[2018-04-25] MEDS: Sertraline* 100 MG TAB PO SCH (07:38)
[2018-04-25] MEDS: BuPROPion XL* 150 MG TAB.XL PO SCH (07:38)
[2018-04-25 07:50] LABS: Mean Corpuscular HGB Conc 33 g/dl (31-36); Mean Corpuscular Hemoglobin 30 pg (27-31); Mean Corpuscular Volume 92 fL (80-97); Red Blood Count 3.61 10^6/ul (4.00-5.40); Red Cell Distribution Width 13 % (10.5-15); White Blood Count 8.5 10^3/ul (3.5-10.8)
[2018-04-25 08:25] VITALS: BP 116/60
--- NOTE | 2018-04-25 09:13 | PN ---
Subjective Date of Service: 04/25/18 Objective Active Medications: Acetaminophen (Tylenol Tab*) 650 mg PO Q6H PRN PRN Reason: FEVER/PAIN Last Admin: 04/25/18 07:38 Dose: 650 mg Hydrocodone Bitart/Acetaminophen ([place] 5-325 Tab*) 2 tab PO Q4H PRN PRN Reason: PAIN Last Admin: 04/25/18 06:02 Dose: 1 tab Bupropion HCl (Wellbutrin Xl *) 150 mg PO DAILY [facility] Last Admin: 04/25/18 07:38 Dose: 150 mg Enoxaparin Sodium (Lovenox(*)) 40 mg SUBCUT Q24H [facility] Last Admin: 04/24/18 11:08 Dose: 40 mg Sodium Chloride (Ns 0.9% 1000 Ml) 1,000 mls @ 100 mls/hr IV PER RATE [facility] Last Admin: 04/23/18 21:42 Dose: 100 mls/hr Lorazepam (Ativan Tab(*)) 0.5 mg PO Q6H PRN PRN Reason: INSOMNIA Morphine Sulfate (Morphine Vial*) 1 mg IV Q2H PRN PRN Reason: PAIN - SEVERE Last Admin: 04/24/18 04:10 Dose: 1 mg Sertraline HCl (Zoloft*) 100 mg PO DAILY [facility] Last Admin: 04/25/18 07:38 Dose: 100 mg Tramadol HCl (Ultram*) 50 mg PO Q6H PRN PRN Reason: PAIN - MILD Last Admin: 04/25/18 02:07 Dose: 50 mg Vital Signs - 8 hr 04/25/18 04/25/18 04/25/18 01:20 02:07 05:11 Temperature 98.9 F 100.3 F Pulse Rate 80 95 Respiratory 18 16 18 Rate Blood Pressure 127/52 127/47 (mmHg) O2 Sat by Pulse 93 90 Oximetry 04/25/18 04/25/18 04/25/18 06:02 07:10 08:00 Temperature 100 F Pulse Rate 85 Respiratory 16 13 16 Rate Blood Pressure 116/60 (mmHg) O2 Sat by Pulse 90 Oximetry 04/25/18 09:03 Temperature Pulse Rate Respiratory 14 Rate Blood Pressure (mmHg) O2 Sat by Pulse Oximetry Oxygen Devices in Use Now: None Result Diagrams: 04/25/18 06:51 04/25/18 06:51 Microbiology and Other Data: Microbiology 02/26/19 04:20 Nasal Screen MRSA (PCR) - Final Nasal Mrsa Detected Assess/Plan/Problems-Billing Assessment: This is a 73yof with PMHx of depression, anxiety, who presents to ER with L hip fracture after fall, s/p ORIF. Status and Disposition: Inpatient, dispo as per orthopedics, plan for [facility] if accepted.
[2018-04-25] MEDS ORDERED: Acetaminophen TAB* 325 MG PO SCH (12:00)
--- NOTE | 2018-04-25 12:52 | PN ---
Progress Note - Progress Note Date of Service: 04/25/18 SOAP: Subjective: []Patient seen OOb in chair and again walking to BR with aide. She is doing well. Her pain is well managed. She is waiting for bed offer at [facility]. Objective: [] Vital Signs Temp 100 F 04/25/18 07:10 Pulse 85 04/25/18 07:10 Resp 14 04/25/18 09:03 BP 116/60 04/25/18 07:10 Pulse Ox 94 04/25/18 11:50 Intake & Output 04/24/18 04/25/18 04/25/18 18:59 06:59 18:59 Intake Total 1269 1180 Output Total 1825 350 600 Balance -556 830 -600 Intake: IV Fluids 909 NS (0.9%) 909 Oral 360 1180 Output: Urine 1825 350 600 Other: # Bowel Movements 1 Estimated Stool Amount Medium Laboratory Results - last 24 hr 04/25/18 04/25/18 06:51 06:51 WBC 8.5 RBC 3.61 L Hgb 11.1 L Hct 32 L MCV 92 MCH 30 MCHC 33 RDW 13 Plt Count 167 MPV 7.7 Sodium 137 Potassium 4.1 Chloride 103 Carbon Dioxide 28 Anion Gap 6 BUN 10 Creatinine 0.52 Est GFR ( Amer) 139.5 Est GFR (Non-Af Amer) 115.3 BUN/Creatinine Ratio 19.2 Glucose 145 H Calcium 8.5 L Left hip dressings changed today- wounds all benign, new 4x4s and tape applied Wounds benign calf NT and soft + DF left ankle sensation and circulation intact distally Assessment: []s/p IM nail for IT fracture left hip POD #2 Plan: []PT/OT WBAT LLE Lovenox 40 mg q 24 hrs for DVT prophylaxis- 30 days post op Await bed offer [facility]- possibly today May shower tomorrow- light dressing as needed Follow up with Dr. Thomas in 10-14 days in office.
[2018-04-25] MEDS: Enoxaparin(*) 40 MG/0.4 ML SYR SUBCUT SCH (13:00)
--- NOTE | 2018-04-25 13:37 | DS ---
CC: Dr. Jake Bal; Dr. Kris Thomas * TRANSFER SUMMARY: DATE OF ADMISSION: 04/22/18 DATE OF DISCHARGE: 04/25/18 PROVIDER: Ruiz Hardwick NP ATTENDING PHYSICIAN: Dr. Alfred Hermosillo * (dictated by Ruiz Hardwick NP) . ORTHOPEDIC SURGEON: Dr. Kris Thomas. PRIMARY CARE PROVIDER: Dr. Jake Bal. PRIMARY DISCHARGE DIAGNOSIS: Left intertrochanteric fracture, status post gamma nail fixation. SECONDARY DISCHARGE DIAGNOSES: 1. Depression. 2. Anxiety. MEDICATIONS AT DISCHARGE: 1. Acetaminophen 975 mg q.8 hours scheduled. 2. Lovenox 40 mg daily x4 weeks. 3. [place] 5/325 one to two tabs p.o. q.4 hours p.r.n. 4. Tramadol 50 mg q.6 hours p.r.n. 5. Bupropion XL 300 mg daily. 6. Sertraline 100 mg daily. HOSPITAL COURSE OF STAY: For full details, please refer to the H and P provided by Dr. Elizabeth Coronado on 04/22/18. In summary, Ms. Zaldivar is a 73-year- old female who presented to the ER after she slipped and fell while picking up her dog on the ice. She was able to get up and drive herself home, but then recognized that she had significant left leg pain and came in by EMS services to the hospital. She was found to have a mild comminuted fracture that was seen on CT only. The pelvic MRI confirmed an acute intertrochanteric fracture, proximal left femur. She was taken to the OR on 04/23/18 where she underwent an intramedullary fixation of left hip intertrochanteric fracture with a short Synthes TFN nail. She tolerated this well. She is now postop day 2. She has been able to participate with therapies. This morning, on the day of discharge, I did see the patient; she was alert and sitting up in bed, although she reported feeling very groggy from the pain medication that she had received overnight. In review, she did receive tramadol at 2 a.m. and then 1 [place] at 6 a.m. She states she felt very groggy and had a hard time waking up. We discussed transitioning her to scheduled Tylenol with p.r.n. use of the narcotic medications in order to decrease her risk for drowsiness and sedation. This should be used cautiously and may be adjusted to get the best response for pain and limit side effects. It may be that with the scheduled Tylenol that this will be enough for her to manage her pain. Incidentally after she received this medication, she was noted to have a low-grade fever and a low O2 saturation and that was noted to be 90% to 92%. She was given her incentive spirometer and her temperature came down to 99 and O2 saturation was improved to 94% and above. She is encouraged to continue using her incentive spirometer. Lungs are clear with no adventitious lung sounds. She denies any shortness of breath. She is motivated to continue with her therapies and her incentive spirometer and does appear to be safe and appropriate for discharge. PHYSICAL EXAMINATION: General: This is a pleasant older female, lying in bed, in no acute distress. HEENT: Head is atraumatic/normocephalic. Pupils are equal and reactive. Extraocular movements are intact. Oral mucosa is moist. Neck is supple with full range of motion. No JVD noted. Respiratory: Lungs are clear to auscultation bilaterally with good aeration throughout. Cardiac: Regular rate and rhythm. No murmurs, rubs, or gallops. Abdomen is soft, nontender, nondistended with normoactive bowel sounds. Musculoskeletal: There is a dressing to the left hip that is clean, dry, and intact. There is good distal sensation, movement, and brisk capillary refill. Distal pulses are intact bilaterally both at 2+. Neuro: Equal marine pilot bilaterally in the upper extremities. There are no focal deficits. Her speech is clear. She is alert and oriented x3. OUTPATIENT FOLLOWUP NEEDS: She should follow up with Dr. Thomas within 2 weeks. She should also follow up with the facility physician, Dr. Bal within the first 3 days upon arrival. She is to be weightbearing as tolerated to the left lower extremity. ACTIVITY: Again, weightbearing as tolerated. DIET: Regular. CONDITION: Stable. DISPOSITION: To [facility] for subacute rehab. Again, this is only a brief summary of the patient's hospital course of stay. For full details, please refer to the full medical record. If there are further questions, please feel to contact us at [phone]. TIME SPENT: Approximately 40 minutes was spent on this discharge. RUIZ HARDWICK, SIDNEY [id number]/[facility] #: [id number] [facility]PITALKathleen
== END 2018-04-25 14:15 | DRG 482 ==
LOC: ED 18:39 → SSU 04-22 01:37
PROVIDERS: ADMIT Internal Medicine; ATTEND Student in an Organized Health Care Education/Training Program
PROC: 0QH706Z Insertion of Intramedullary Internal Fixation Device into Left Upper Femur, Open Approach (ICD-10-PCS; principal; 2018-04-23 14:00)
DX: S72.142A Displaced intertrochanteric fracture of left femur, initial encounter for closed fracture (principal); S72.115A Nondisplaced fracture of greater trochanter of left femur, initial encounter for closed fracture; F41.8 Other specified anxiety disorders; F32.9 Major depressive disorder, single episode, unspecified; W00.2XXA Other fall from one level to another due to ice and snow, initial encounter; Y92.9 Unspecified place or not applicable; Z79.899 Other long term (current) drug therapy; Z91.018 Allergy to other foods; Z82.49 Family history of ischemic heart disease and other diseases of the circulatory system; Z83.3 Family history of diabetes mellitus
CPT/HCPCS: 36415; 72192; 72195; 80048; 80053; 81003; 84443; 85014; 85018; 85025; 85027; 85049; 85610; 86803; 86850; 86900; 86901; 87641; 93005; 99284; A9270-GY; C1713; C1776; G8978-GP-CK; G8979-GP-CI; G8987-GO-CK; G8988-GO-CH; J0360; J0690; J1100; J1644; J1650; J2270; J2405; J2704; J3010